=== PATIENT | female | born 1985 | race Caucasian/White ===

== ENCOUNTER 2016-12-05 08:28 | Emergency (ER) | payer MEDICAID ==
[~2016-12-05] VITALS: Ht 167.6 cm; Wt 74.1 kg
[2016-12-05 09:35] LABS: HEMATOCRIT 30.7 % (34.6-47.8); HEMOGLOBIN 9.9 g/dL (11.7-16.4); WHITE BLOOD COUNT 8.4 x10^3/uL (3.4-10)
[2016-12-05 10:34] VITALS: BP 124/64
[2016-12-05 10:40] LABS: PATH.CAST-FLAG NOT PRESENT; SPERM-FLAG NOT PRESENT; SRC-FLAG NOT PRESENT; XTAL-FLAG NOT PRESENT; YLC-FLAG NOT PRESENT
== END 2016-12-05 10:37 | disposition home or self-care (01) ==
LOC: ED 09:09
DX: N92.4 Excessive bleeding in the premenopausal period (principal); D62 Acute posthemorrhagic anemia
CPT/HCPCS: 36415; 76830; 81001; 84703; 85025; 99285

== ENCOUNTER 2018-11-13 13:17 | Emergency (ER) | payer MEDICAID, OTHER ==
[~2018-11-13] VITALS: Ht 170.2 cm; Wt 109.0 kg
[2018-11-13] MEDS ORDERED: KETOROLAC 30 MG/1 ML ONE (13:59)
[2018-11-13] MEDS ORDERED: KETOROLAC 30 MG/1 ML IM ONE (14:00)
[2018-11-13 15:47] VITALS: BP 122/61
== END 2018-11-13 15:50 | disposition home or self-care (01) ==
LOC: ED 15:40
DX: S76.212A Strain of adductor muscle, fascia and tendon of left thigh, initial encounter (principal); X58.XXXA Exposure to other specified factors, initial encounter; Y93.89 Activity, other specified; Y92.89 Other specified places as the place of occurrence of the external cause; Y99.8 Other external cause status
CPT/HCPCS: 72170; 93971; 96372; 99284; J1885

== ENCOUNTER 2019-06-10 10:02 | Emergency (ER) | payer SELFPAY ==
[~2019-06-10] VITALS: Ht 167.6 cm; Wt 110.1 kg
--- NOTE | 2019-06-10 10:34 | NUR ---
Pt in [facility], on [facility], urine sample collected and walked to lab by RN. MCCLELLAND, denies additional needs at this time. WCTM. Given warm blanket, call light within reach.
[2019-06-10 11:32] LABS: CULTURE INDICATED? YES; MICROSCOPIC INDICATED
[2019-06-10 11:50] VITALS: BP 104/68
== END 2019-06-10 11:53 | disposition home or self-care (01) ==
LOC: ED 10:37
DX: R10.2 Pelvic and perineal pain (principal)
CPT/HCPCS: 81001; 87086; 99283

== ENCOUNTER 2019-10-24 18:21 | Emergency (ER) | payer MEDICAID ==
[~2019-10-24] VITALS: Ht 170.2 cm; Wt 113.1 kg
[2019-10-24 18:26] VITALS: BP 107/70
== END 2019-10-24 19:33 | disposition home or self-care (01) ==
LOC: ED 19:00
DX: K05.10 Chronic gingivitis, plaque induced (principal); F17.210 Nicotine dependence, cigarettes, uncomplicated
CPT/HCPCS: 99283; 99406

== ENCOUNTER 2020-06-29 05:38 | Emergency (ER) | payer MEDICAID ==
[~2020-06-29] VITALS: Ht 170.2 cm; Wt 113.7 kg
--- NOTE | 2020-06-29 06:02 | NUR ---
Pt to ER after waking up sweating and having a cough. Pt denies SOB or CP. Pt denies N/V/D. Provider at bedside Covid swab done and sent to lab. Pt with no distress.
[2020-06-29 06:23] VITALS: BP 95/62
--- NOTE | 2020-06-29 06:25 | NUR ---
Patient given discharge instructions and they have confirmed that they understand the instructions. Patient ambulatory with steady gait. Dr Nunez notified of pt's BP, and ok to DC. pt denies lightheadedness or dizziness.
== END 2020-06-29 06:27 | disposition home or self-care (01) ==
LOC: ED 06:08
DX: J00 Acute nasopharyngitis [common cold] (principal); Z20.822 Contact with and (suspected) exposure to COVID-19
CPT/HCPCS: 99283; U0003

== ENCOUNTER 2020-08-27 16:09 | Emergency (ER) | payer MEDICAID ==
[~2020-08-27] VITALS: Ht 170.2 cm; Wt 106.7 kg
--- NOTE | 2020-08-27 16:33 | NUR ---
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 STEADY UPON AMBULATION. NO ACUTE DISTRESS NOTED.
[2020-08-27 16:55] LABS: BASOPHILS % (AUTO) 1 % (0-1); EOSINOPHILS % (AUTO) 1 % (1-7); LYMPHOCYTES % (AUTO) 35 % (22-44); MEAN CORPUSCULAR HEMOGLOBIN 32.9 pg (27.0-34.8); MEAN CORPUSCULAR HGB CONC 33.4 g/dL (32.4-35.8); MEAN PLATELET VOLUME 9.5 fL (7.4-10.4); MONOCYTES % (AUTO) 6 % (2-9); NEUTROPHILS % (AUTO) 57 % (42-75); PLATELET COUNT 181 x10^3/uL (130-400); RED BLOOD COUNT 4.11 x10^6/uL (3.82-5.3); RED CELL DISTRIBUTION WIDTH 13.6 % (9.6-15.2)
[2020-08-27 16:56] LABS: MD NO
[2020-08-27] MEDS ORDERED: ONDANSETRON ODT 4 MG PO ONE (17:00)
[2020-08-27] MEDS ORDERED: ONDANSETRON ODT 4 MG ONE (17:03)
[2020-08-27 17:06] LABS: ALANINE AMINOTRANSFERASE 18 U/L (12-78); ALBUMIN 3.6 g/dL (3.4-5.0); ANION GAP 7 mmol/L (5-15); CALCIUM 8.2 mg/dL (8.5-10.1); CHLORIDE 112 mmol/L (98-107); CREATININE 0.71 mg/dL (0.55-1.02)
--- NOTE | 2020-08-27 17:07 | NUR ---
PT MEDICATED PER ERP ORDER. BP CUFF, PULSE OX IN PLACE. CALL LIGHT WITHIN REACH.
[2020-08-27 17:11] LABS: ALKALINE PHOSPHATASE 48 U/L (45-117); BILIRUBIN,TOTAL 0.6 mg/dL (0.2-1.0); TOTAL PROTEIN 6.8 g/dL (6.4-8.2)
--- NOTE | 2020-08-27 17:35 | NUR ---
ALL RESULTS BACK, PT FOR RECHECK.
[2020-08-27 18:03] VITALS: BP 116/71
== END 2020-08-27 18:05 | disposition home or self-care (01) ==
LOC: ED 17:17
DX: K52.9 Noninfective gastroenteritis and colitis, unspecified (principal); R11.2 Nausea with vomiting, unspecified; F17.200 Nicotine dependence, unspecified, uncomplicated
CPT/HCPCS: 36415; 80053; 83690; 84703; 85025; 99283; Q0162